=== PATIENT | male | born 1960 | race Caucasian/White ===

== ENCOUNTER → 2017-02-19 | Outpatient (CLI) | payer OTHER ==
[2016-06-03 11:00] VITALS: BP 133/77
[~2017-02-19] MED LIST: ALBU8.5H6 INH; ASPI-482 PO; ATOR40TA59 PO; CRESTOR20 MG PO; Doxycycline Hyclate PO; LATA2.5D3 EACHEYE; LOSA50TA6 PO; METO25TA9 PO; MULT-246 PO; OMEG1CAP66 PO; PRAS10TA4 PO; PRED20TA PO; TADA20TA PO; TADA5TAB PO
--- NOTE | 2017-02-19 15:16 | KCIC ---
CERVICAL SPINE, FIVE VIEWS, 02/19/2017: History: Pain The cervical vertebral heights are well maintained. There is extensive anterior spurring in the mid and lower cervical spine with a lesser degree of posterior spurring. There are moderate degenerative changes involving multiple facet joints bilaterally. The combination of findings is causing moderate foraminal narrowing bilaterally at multiple levels, particularly at C3-4, C5-6 and C6-7. No fracture or dislocation is identified. The prevertebral soft tissues are unremarkable. IMPRESSION: 1. Moderately severe multilevel hypertrophic degenerative change as described above. 2. No acute bony abnormality is detected. Electronically signed by: Pantera Izquierdo MD (Feb 19, 2017 15:14:40)
== END | disposition home or self-care (01) ==
LOC: KCIC 13:47
PROVIDERS: ATTEND Family Medicine
DX: M54.2 Cervicalgia (principal)
CPT/HCPCS: 72050

== ENCOUNTER → 2017-06-22 | Outpatient (CLI) | payer OTHER ==
[2016-06-03 11:00] VITALS: BP 133/77
[~2017-06-22] MED LIST changes: -PRAS10TA4 PO; +PRAS10TA9 PO
--- NOTE | 2017-06-22 11:16 | CARD ---
APPROVED REPORT EXAM: Two-dimensional and M-mode echocardiogram with Doppler and color Doppler. Other Information Quality : Good INDICATION Cardiac Disease: CAD 2D DIMENSIONS RVDd3.7 (2.9-3.5cm)Left Atrium(2D)3.8 (1.6-4.0cm) IVSd1.1 (0.7-1.1cm)Aortic Root(2D)2.8 (2.0-3.7cm) LVDd5.0 (3.9-5.9cm)LVOT Diameter2.0 (1.8-2.4cm) PWd1.0 (0.7-1.1cm)LVDs2.7 (2.5-4.0cm) FS (%) 27.5 %SV90.4 ml LVEF(%)55.0 (>50%) Aortic Valve AoV Peak Russel.142.2cm/sAoV VTI26.2cm AO Peak GR.8.1mmHgLVOT Peak Russel.143.1cm/s AO Mean GR.4mmHgAVA (VMAX)3.10cm2 ABELARDO (VTI)3.20cm2 Mitral Valve MV E Mmwtdmkr35.5cm/sMV DECEL LOFT030bl MV A Errybsmi85.7cm/sE/A Ratio1.3 Tricuspid Valve TR P. Zvobkfdr207wn/sRAP TUWRRTEU4rdNi TR Peak Gr.07nkMaBIWL13ubGa Pulmonary Vein S1 Bxzphcxv70.2cm/sD2 Xzxgobwc33.7cm/s PVa [id number] LEFT VENTRICLE The left ventricle is normal size. There is normal left ventricular wall thickness. The Ejection Frac tion is 55%. There is normal LV segmental wall motion. Transmitral Doppler flow pattern is Grade I-ab normal relaxation pattern. RIGHT VENTRICLE The right ventricle is normal size. The right ventricular systolic function is normal. ATRIA The left atrium size is normal. The right atrium size is normal. The interatrial septum is intact wit h no evidence for an atrial septal defect or patent foramen ovale as noted on 2-D or Doppler imaging. AORTIC VALVE The aortic valve is normal in structure and function. Doppler and Color Flow revealed trace aortic re gurgitation. There is no significant aortic valvular stenosis. MITRAL VALVE The mitral valve is normal in structure and function. There is no evidence of mitral valve prolapse. There is no mitral valve stenosis. Doppler and Color Flow revealed no significant mitral valve regurg itation. TRICUSPID VALVE The tricuspid valve is normal in structure and function. Doppler and Color Flow revealed physiologica l tricuspid regurgitation. The PA pressure was estimated at 28 mmHg. There is no tricuspid valve sten osis. PULMONIC VALVE The pulmonary valve is normal in structure and function. Doppler and Color Flow revealed trace pulmon ic valvular regurgitation. There is no pulmonic valvular stenosis. GREAT VESSELS The aortic root is normal in size. The ascending aorta is normal in size. The IVC is normal in size a nd collapses >50% with inspiration. PERICARDIAL EFFUSION There is no evidence of significant pericardial effusion. Critical Notification Critical Value: No <Conclusion> The Ejection Fraction is 55%. There is normal LV segmental wall motion.
== END | disposition home or self-care (01) ==
LOC: NM 07:23
PROVIDERS: ATTEND Internal Medicine Cardiovascular Disease
DX: I08.2 Rheumatic disorders of both aortic and tricuspid valves (principal); I10 Essential (primary) hypertension; Z86.79 Personal history of other diseases of the circulatory system; Z79.01 Long term (current) use of anticoagulants; Z87.891 Personal history of nicotine dependence
CPT/HCPCS: 93306